=== PATIENT | female | born 2000 | race Caucasian/White ===

== ENCOUNTER 2024-06-08 15:35 | Emergency (ER) | payer MEDICAID ==
[~2024-06-08] VITALS: Ht 149.9 cm; Wt 56.7 kg
[2024-06-08 15:56] VITALS: O2SAT 99
[2024-06-08] MEDS: KETOROLAC 30MG/ML VIAL IM ONE (16:38)
[2024-06-08 16:55] LABS: CLARITY URINE CLEAR (CLEAR); COLOR URINE YELLOW (YELLOW); GLUCOSE URINE NEGATIVE (NEGATIVE); KETONES URINE NEGATIVE (NEGATIVE); LEUKOCYTE ESTERASE URINE 1+ (NEGATIVE); NITRITE URINE POSITIVE (NEGATIVE); OCCULT BLOOD URINE 1+ (NEGATIVE); PH URINE 5.5 (4.5-8.0); PROTEIN URINE 2+ (NEGATIVE); SPECIFIC GRAVITY URINE 1.021 (1.005-1.030)
[2024-06-08] MEDS ORDERED: IBUP-2029 MT (17:14)
[2024-06-08] MEDS ORDERED: NITR-87 MT (17:14)
[2024-06-08 17:21] LABS: BACTERIA URINE 1+; SQUAMOUS EPITHELIAL CELL URINE 1+ /lpf (RARE/1+)
[2024-06-08] MEDS: NITROFURANTOIN 100MG M/M CAPSULE PO ONE (17:34)
[2024-06-08 17:36] VITALS: BP 102/64; PULSE 88; RESP 16; TEMP 98.3
[2024-06-09] MEDS ORDERED: PHEN-815 MT (16:21)
[2024-06-09] MEDS ORDERED: SULF1TAB48 MT (16:21)
== END 2024-06-08 19:11 | disposition home or self-care (01) ==
LOC: ER 15:35
DX: N39.0 Urinary tract infection, site not specified (principal)
CPT/HCPCS: 99283; 81003; 81025; 96372; J1885

== ENCOUNTER 2024-06-09 14:01 | Emergency (ER) | payer MEDICAID ==
[~2024-06-09] VITALS: Ht 162.6 cm; Wt 57.0 kg
[~2024-06-09 14:01] MED LIST: IBUP-2029 MT; NITR-87 MT
[2024-06-09 14:08] VITALS: O2SAT 99
[2024-06-09] MEDS ORDERED: ONDANSETRON 4MG ODT PO ONE (15:00)
[2024-06-09] MEDS ORDERED: KETOROLAC 30MG/ML VIAL IM ONE (15:00)
[2024-06-09] MEDS ORDERED: PHEN-815 MT (16:21)
[2024-06-09] MEDS ORDERED: SULF1TAB48 MT (16:21)
[2024-06-09 16:39] VITALS: BP 134/52; PULSE 61; RESP 15; TEMP 98.6
== END 2024-06-09 16:40 | disposition home or self-care (01) ==
LOC: ER 14:01
DX: N12 Tubulo-interstitial nephritis, not specified as acute or chronic (principal)
CPT/HCPCS: 99283; 81025; Q0162; J1885